=== PATIENT | female | born 1990 | race Caucasian/White ===

== ENCOUNTER 2019-11-09 17:56 | Emergency (ER) | payer OTHER, SELFPAY ==
[2019-11-09 18:17] LABS: Bilirubin Negative (Negative); Blood, Urine Trace (Negative); Clarity Cloudy (Clear); Glucose, Urine (Dipstick) Negative (Negative); Leukocyte Moderate (Negative); Nitrite Negative (Negative); Protein, Urine (Dipstick) 100 mg/dL (Neg-Trace)
[2019-11-09 18:22] LABS: Bacteria/HPF 3+ HPF (None Seen); RBC/HPF 0-3 HPF (0-3); Squamous Epithelial 0-3 HPF (0-3); WBC/HPF Greater than 50 HPF (0-3)
[2019-11-09] MEDS ORDERED: Ondansetron ODT 4 MG TAB ONE (18:29)
[2019-11-09] MEDS ORDERED: Sulfameth/Trimethoprim DS 800-160mg TAB ONE (18:29)
[2019-11-09] MEDS ORDERED: Phenazopyridine HCl 97.5 MG TABLET ONE (18:29)
== END 2019-11-09 18:32 | disposition home or self-care (01) ==
LOC: BURERS 17:56
DX: N39.0 Urinary tract infection, site not specified (principal)
CPT/HCPCS: 81003; 81015; 99283; Q0162

== ENCOUNTER 2020-06-27 09:48 | Emergency (ER) | payer BC, SELFPAY ==
[2020-06-27] MEDS ORDERED: Iopamidol 370 76% 100 ML VIAL ONE (10:25)
[2020-06-27] MEDS ORDERED: Acetaminophen 500 MG TAB ONE (10:32)
[2020-06-27] MEDS ORDERED: Ondansetron PF 4 MG/2 ML Vial ONE (10:32)
[2020-06-27 10:40] LABS: #Basophils 0.1 thou/uL (0.0-0.2); #Lymphocytes 0.9 thou/uL (1.20-3.40); #Monocytes 0.7 thou/uL (0.11-0.59); #Neutrophils 12.5 thou/uL (1.40-6.50); %Basophils 0.5 % (0.0-1.0); %Eosinophils 0.1 % (0.0-10.0); %Lymphocytes 6.4 % (21.0-51.0); %Monocytes 4.6 % (0.0-10.0); %Neutrophils 88.5 % (42.0-75.0); Mean Corpuscular Hemoglobin 27.6 pg (27.0-31.0); Mean Corpuscular Volume 83.4 fL (78.0-98.0); Mean Platelet Volume 8.3 fL (7.4-10.4); Platelet Count 306 thou/uL (130-400); RBC Distribution Width 13.8 % (11.5-14.5); White Blood Cell (WBC) Count 14.2 thou/uL (4.8-10.8)
[2020-06-27 10:55] LABS: ALT (SGPT) 22 U/L (8-55); AST (SGOT) 14 U/L (5-34); Albumin 4.2 g/dL (3.5-5.0); Alkaline Phosphatase 55 U/L (40-110); Anion Gap 16 mmol/L (10-20); BUN (Urea Nitrogen) 9 mg/dL (7.0-18.7); CK (CPK) 48 U/L (29-168); Calc. Creatinine Clearance 0 mL/min (70-130); Calcium 9.1 mg/dL (7.8-10.44); Carbon Dioxide 23 mmol/L (22-29); Chloride 102 mmol/L (98-107); Globulin 3.5 g/dL (2.4-3.5); Glucose 101 mg/dL (70-105); Potassium 3.6 mmol/L (3.5-5.1); Protein, Total 7.7 g/dL (6.0-8.3); Sodium 137 mmol/L (136-145)
--- NOTE | 2020-06-27 15:05 | CT ---
CT ANGIO OF THE CHEST 06/27/20 After a bolus of IV contrast, the chest was scanned with multiplanar and MIP reconstructions. There i s good opacification of the pulmonary arteries with no evidence for pulmonary embolism. There is no s ign of aortic dissection or aneurysm. The coronary arteries fill well. No pericardial effusion was se en. There is no mediastinal adenopathy or mass. The lungs are clear. No infiltrate or effusion was se en. A few minimally nodular areas are seen in the pleura which are probably due to old infections. T hey do not appear currently significant. Scans into the upper part of the abdomen showed no adrenal m asses. There is a gallstone present in the gallbladder. IMPRESSION: 1. No evidence of pulmonary embolism or acute parenchymal disease. 2. Gallstone. Preliminary report called to [facility] in ER at 1142 on 06/27/20. POS: HOME
--- NOTE | 2020-06-27 16:29 | RAD ---
CHEST TWO VIEWS: 06/27/20 Comparison is made with an 04/02/17 study. The heart is normal in size and the lungs are clear. No acute infiltrate or effusion was seen. The me diastinum appears normal. IMPRESSION: No acute thoracic finding. POS: HOME
== END 2020-06-27 12:13 | disposition home or self-care (01) ==
LOC: BURERS 09:48
DX: J20.9 Acute bronchitis, unspecified (principal)
CPT/HCPCS: 36415; 71046; 71275; 80053; 82550; 83605; 85025; 85379; 87040; 87081; 87430; 87804; 93005; 94760; 96374; J2405; Q9967

== ENCOUNTER 2020-11-11 02:38 | Emergency (ER) | payer BC | END 2020-11-11 03:10 | disposition home or self-care (01) | LOC: BURERS 02:38 | DX: S60.221A Contusion of right hand, initial encounter (principal); W23.0XXA Caught, crushed, jammed, or pinched between moving objects, initial encounter ==

== ENCOUNTER 2020-12-03 16:01 | Emergency (ER) | payer BC ==
[2020-12-03] MEDS ORDERED: Cyclobenzaprine 10 MG TAB ONE (16:36)
== END 2020-12-03 16:43 | disposition home or self-care (01) ==
LOC: BURERS 16:01
DX: S39.012A Strain of muscle, fascia and tendon of lower back, initial encounter (principal); W10.9XXA Fall (on) (from) unspecified stairs and steps, initial encounter
CPT/HCPCS: 99283

== ENCOUNTER 2021-08-22 14:43 | Emergency (ER) | payer BC | END 2021-08-22 15:24 | disposition home or self-care (01) | LOC: BURERS 14:43 | DX: S39.012A Strain of muscle, fascia and tendon of lower back, initial encounter (principal) | CPT/HCPCS: 99283 ==

== ENCOUNTER 2022-03-22 19:20 | Emergency (ER) | payer BC ==
[2022-03-22] MEDS ORDERED: HYDROcodone/Acetaminophen 5/325 mg Tablet ONE (19:52)
== END 2022-03-22 20:33 | disposition home or self-care (01) ==
LOC: BURERS 19:20
DX: S63.286A Dislocation of proximal interphalangeal joint of right little finger, initial encounter (principal); S63.636A Sprain of interphalangeal joint of right little finger, initial encounter; X58.XXXA Exposure to other specified factors, initial encounter

== ENCOUNTER 2025-02-28 14:26 | Emergency (ER) | payer BC ==
[~2025-02-28 14:26] MED LIST: Iopamidol 370 76% 100 ML VIAL ONE
[2025-02-28] MEDS ORDERED: Famotidine/PF 20 mg/2ml Vial ONE (14:54)
[2025-02-28] MEDS ORDERED: Ondansetron PF 4 MG/2 ML Vial ONE (14:54)
[2025-02-28 15:03] LABS: Glucose, Urine (Dipstick) Negative (Negative); Leukocyte Negative (Negative); Protein, Urine (Dipstick) Trace mg/dL (Neg-Trace); Specific Gravity, Urine Greater/Equal 1.030 (1.005-1.030)
[2025-02-28 15:07] LABS: Hematocrit 38.8 % (36.0-47.0); Hemoglobin 14.1 g/dL (12.0-16.0); Mean Corpuscular Hemoglobin 30.5 pg (27.0-31.0); Mean Corpuscular Volume 83.9 fl (78.0-98.0); Platelet Count 373 10x3/uL (130-400); Red Blood Cell (RBC) Count 4.62 mill/uL (4.20-5.40); White Blood Cell (WBC) Count 9.5 10x3/uL (4.8-10.8)
[2025-02-28 15:15] LABS: ALT (SGPT) 16 U/L (Less than 34); AST (SGOT) 19 U/L (11-34); Albumin 4.1 g/dL (3.1-4.5); Alkaline Phosphatase 49 U/L (40-110); Anion Gap 12 mmol/L (10-20); BUN (Urea Nitrogen) 15 mg/dL (7.0-18.7); Bilirubin, Total 0.4 mg/dL (0.3-1.2); Calc. Creatinine Clearance 0 mL/min (70-130); Calcium 9.3 mg/dL (7.8-10.44); Carbon Dioxide 25 mmol/L (22-29); Chloride 105 mmol/L (98-107); Globulin 3.6 g/dL (2.4-3.5); Glucose 79 mg/dL (70-105); Lipase 89 U/L (8-78); Potassium 4.4 mmol/L (3.5-5.1); Sodium 138 mmol/L (136-145)
[2025-02-28 15:20] LABS: MDiff Complete? YES
[2025-02-28 15:27] LABS: Bacteria/HPF 1+ HPF (None Seen); CAUTI Indications for Culture Pelvic or flank pain; RBC/HPF 0-3 HPF (0-3); WBC/HPF 0-3 HPF (0-3)
[2025-02-28 15:28] LABS: Urine Culture Reflex No No
== END 2025-02-28 16:05 | disposition home or self-care (01) ==
LOC: BURERS 14:26
DX: K80.50 Calculus of bile duct without cholangitis or cholecystitis without obstruction (principal)
CPT/HCPCS: 74177; 80053; 81001; 83690; 85025; 96361; 96374; 96375; Q9967